=== PATIENT | male | born 1945 | race Caucasian/White ===

== ENCOUNTER 2016-06-10 07:07 | Outpatient (CLI) | payer MEDICARE | END 2016-06-10 07:08 | disposition home or self-care (01) | DX: E78.2 Mixed hyperlipidemia (principal); I10 Essential (primary) hypertension; Z79.899 Other long term (current) drug therapy; Z12.5 Encounter for screening for malignant neoplasm of prostate | CPT/HCPCS: 36415; 80053; 80061; 83721; 85025; G0103 ==

== ENCOUNTER 2017-05-20 11:05 | Day surgery (SDC) | payer MEDICARE ==
[2017-05-20] MEDS ORDERED: LACTATED RINGERS 1,000 ML IV ONE (11:30)
[2017-05-20] MEDS ORDERED: MIDAZOLAM 2 MG/2 ML VIAL IVP ONE (12:07)
[2017-05-20] MEDS ORDERED: fentaNYL 100 MCG/2 ML VIAL IVP ONE (12:07)
[2017-05-20 13:22] VITALS: BP 122/62
--- NOTE | 2017-05-21 14:39 | PROCEDURE REPORT ---
DATE OF SERVICE: 05/20/2017 Physician: Cordelia Cortes MD PROCEDURE PERFORMED: Colonoscopy with polypectomy. ENDOSCOPIST: Cordelia Cortes MD PRIMARY CARE: Giorgi Phelan MD INDICATION: Cologuard positive. PREMEDICATION: Fentanyl 200 mcg and Versed 7 mg IV titration. Total sedation time 22 minutes. DESCRIPTION: After informed consent was obtained, the patient was placed in the left lateral decubitus position. Video colonoscope was introduced in the rectum, slowly advanced to the cecum. On slow withdrawal, mucosa was carefully examined. The scope was removed, the patient tolerated the procedure well. BLOOD LOSS: None. COMPLICATIONS: None. FINDINGS 1. A 5 x 10 mm polyp in the hepatic flexure, cold snared and removed completely. 2. A 4-5 mm polyp in the rectum, jumbo biopsied and removed completely. 3. Otherwise negative colonoscopy to cecum. I suspect that both these polyps are adenomatous and the patient will need followup in 5 years, pending the results of the biopsies. cc: Giorgi Phelan MD TD: 05/20/2017 12:47
== END 2017-05-20 11:06 | disposition home or self-care (01) ==
LOC: SDS 11:05
PROVIDERS: ATTEND Internal Medicine Gastroenterology
PROC: 0DBL8ZX Excision of Transverse Colon, Via Natural or Artificial Opening Endoscopic, Diagnostic (ICD-10-PCS; 2017-05-20)
PROC: 0DBP8ZX Excision of Rectum, Via Natural or Artificial Opening Endoscopic, Diagnostic (ICD-10-PCS; principal; 2017-05-20 12:00)
DX: D12.3 Benign neoplasm of transverse colon (principal); K62.1 Rectal polyp; I25.10 Atherosclerotic heart disease of native coronary artery without angina pectoris; I10 Essential (primary) hypertension; E78.00 Pure hypercholesterolemia, unspecified; Z79.82 Long term (current) use of aspirin
CPT/HCPCS: 45380; J7120

== ENCOUNTER 2017-06-04 07:03 | Outpatient (CLI) | payer MEDICARE ==
[2017-06-04 10:23] LABS: BASOPHILS % (AUTO) 0.4 %; EOSINOPHILS # (AUTO) 0.1 10^3/uL (0.0-0.7); EOSINOPHILS % (AUTO) 2.4 %; HGB - HEMOGLOBIN 15.3 g/dL (14.0-18.0); LYMPHOCYTES # (AUTO) 1.5 10^3/uL (1.5-3.5); LYMPHOCYTES % (AUTO) 30.6 %; MEAN CORPUSCULAR HEMOGLOBIN 32.3 pg (27.0-31.0); MEAN CORPUSCULAR HGB CONC 34.3 g/dL (32.0-36.0); MEAN PLATELET VOLUME 9.2 fL (7.4-11.4); MONOCYTES # (AUTO) 0.5 10^3/uL (0.0-1.0); MONOCYTES % (AUTO) 9.8 %; NEUTROPHILS # (AUTO) 2.9 10^3/uL (1.5-6.6); NEUTROPHILS % (AUTO) 56.8 %; PLT - PLATELET COUNT 208 10^3/uL (130-450); RED BLOOD COUNT 4.73 10^6/uL (4.70-6.10); RED CELL DISTRIBUTION WIDTH 12.8 % (12.0-15.0); WHITE BLOOD COUNT 5.1 x10^3/uL (4.8-10.8)
[2017-06-04 10:37] LABS: ALBUMIN 4.4 g/dL (3.2-5.5); ALBUMIN/GLOBULIN RATIO 1.8 (1.0-2.2); ALKALINE PHOSPHATASE 38 IU/L (42-121); ALT ALANINE AMINOTRANSFERASE 20 IU/L (10-60); AST ASPARTATE AMINOTRANSFERASE 21 IU/L (10-42); BILIRUBIN,TOTAL 1.1 mg/dL (0.2-1.0); BUN - BLOOD UREA NITROGEN 17 mg/dL (6-20); CALCIUM 9.2 mg/dL (8.5-10.3); CARBON DIOXIDE - CO2 27 mmol/L (21-32); CHLORIDE 97 mmol/L (101-111); CHOL/HDL RATIO 1.9 (<5.0); CHOLESTEROL 155 mg/dL; CREATININE 0.8 mg/dL (0.6-1.2); GFR - MDRD 95 (>89); GLUCOSE 88 mg/dL (70-100); HDL CHOLESTEROL 80 mg/dL; SODIUM 132 mmol/L (135-145); TOTAL PROTEIN 6.9 g/dL (6.7-8.2)
[2017-06-04 11:09] LABS: LDL CHOLESTEROL,DIRECT 63 mg/dL; LDLD/HDL RATIO 0.8 (<3.6)
== END 2017-06-04 07:04 | disposition home or self-care (01) ==
LOC: LAB.F 07:03
PROVIDERS: ATTEND Internal Medicine
DX: I10 Essential (primary) hypertension (principal); I25.10 Atherosclerotic heart disease of native coronary artery without angina pectoris; Z79.899 Other long term (current) drug therapy
CPT/HCPCS: 36415; 80053; 80061; 83721; 85025

== ENCOUNTER 2018-08-04 07:15 | Outpatient (CLI) | payer MEDICARE ==
[2018-08-04 11:43] LABS: CHOL/HDL RATIO 1.9 (<5.0); CHOLESTEROL 152 mg/dL; HDL CHOLESTEROL 78 mg/dL
[2018-08-04 14:04] LABS: LDL CHOLESTEROL,DIRECT 54 mg/dL; LDLD/HDL RATIO 0.7 (<3.6)
== END 2018-08-04 07:16 | disposition home or self-care (01) ==
LOC: LAB.F 07:15
PROVIDERS: ATTEND Internal Medicine
DX: E78.5 Hyperlipidemia, unspecified (principal)
CPT/HCPCS: 36415; 80061; 83721

== ENCOUNTER 2019-10-17 07:08 | Outpatient (CLI) | payer MEDICARE ==
[2019-10-17 15:38] LABS: BUN - BLOOD UREA NITROGEN 11 mg/dL (6-20); CALCIUM 9.1 mg/dL (8.5-10.3); CARBON DIOXIDE - CO2 28 mmol/L (21-32); CHLORIDE 98 mmol/L (101-111); CHOL/HDL RATIO 2.1 (<5.0); CHOLESTEROL 155 mg/dL; CREATININE 0.6 mg/dL (0.6-1.2); GLUCOSE 97 mg/dL (70-100); HDL CHOLESTEROL 75 mg/dL; LDL CHOLESTEROL,CALCULATED 70 mg/dL; LDL/HDL RATIO 0.9 (<3.6); SODIUM 133 mmol/L (135-145); VLDL CHOLESTEROL 10 mg/dL
== END 2019-10-17 07:09 | disposition home or self-care (01) ==
LOC: LAB.S 07:08
PROVIDERS: ATTEND Internal Medicine
DX: Z00.00 Encounter for general adult medical examination without abnormal findings (principal)
CPT/HCPCS: 36415; 80048; 80061; 83721